=== PATIENT | female | born 1970 | race Caucasian/White ===

== ENCOUNTER 2018-01-04 19:05 | Emergency (ER) | payer OTHER, BC ==
[~2018-01-04] VITALS: Ht 157.5 cm; Wt 63.5 kg
[~2018-01-04 19:05] MED LIST: ALLEGRA; AMOCLA875 PO; AZIT250 PO; CARI350 PO; CYCL10 PO; FEXPSEER; FEXPSEER PO; FLUT.05NI; HYDACE5 PO; HYDACE5325 PO; NAPR500 PO; PROM25 PO; Percocet 5-3251 EACH PO; SUDAFED; Valium5 MG PO; ZYRTEC; [UNRECOGNIZED DRUG - OTHER]
[2018-01-04] MEDS ORDERED: Monodox100 MG PO (20:07)
[2018-01-04] MEDS ORDERED: BENADRYL25 MG PO (20:07)
== END 2018-01-04 20:26 | disposition home or self-care (01) ==
LOC: ER 19:05
DX: L03.114 Cellulitis of left upper limb (principal)
CPT/HCPCS: 99282; Q0163

== ENCOUNTER → 2018-05-26 | Outpatient (CLI) | payer OTHER, BC ==
[~2018-05-26] MED LIST changes: +BENADRYL25 MG PO; +Monodox100 MG PO
== END | disposition home or self-care (01) ==
LOC: LAB 15:15 → LAB SHORT 15:15
PROVIDERS: Nurse Practitioner
DX: Z01.411 Encounter for gynecological examination (general) (routine) with abnormal findings (principal); R30.0 Dysuria
CPT/HCPCS: 87086; G0145

== ENCOUNTER → 2020-08-21 | Outpatient (CLI) | payer OTHER, BC | END | disposition home or self-care (01) | LOC: LAB EV 09:11 → LAB SHORT 09:11 | PROVIDERS: Nurse Practitioner | DX: Z01.419 Encounter for gynecological examination (general) (routine) without abnormal findings (principal); R35.0 Frequency of micturition | CPT/HCPCS: 87086; G0145 ==

== ENCOUNTER 2022-03-07 18:27 | Emergency (ER) | payer OTHER, BC ==
[~2022-03-07] VITALS: Ht 157.5 cm; Wt 65.8 kg
[2022-03-07] MEDS ORDERED: GABA100 PO (21:21)
[2022-03-07] MEDS ORDERED: EUTHYROX50 MCG PO (21:21)
== END 2022-03-07 22:31 | disposition home or self-care (01) ==
LOC: ER 18:27
DX: R07.89 Other chest pain (principal); M25.512 Pain in left shoulder; Z79.899 Other long term (current) drug therapy
CPT/HCPCS: 71045; 73030; A9270

== ENCOUNTER → 2022-07-16 | Outpatient (CLI) | payer OTHER, BC ==
[~2022-07-16] MED LIST changes: +EUTHYROX50 MCG PO; +GABA100 PO
[2022-07-26 14:09] LABS: HPV 16 Negative (Negative); HPV 18 Negative (Negative); HPV OTHER HR TYPES Negative (Negative)
== END ==
LOC: LAB SHORT 11:15 → LAB 11:15
PROVIDERS: Physician Assistant
DX: Z01.419 Encounter for gynecological examination (general) (routine) without abnormal findings (principal)
CPT/HCPCS: 87624; 88175

== ENCOUNTER → 2024-07-12 | Outpatient (CLI) | payer OTHER, BC ==
[~2024-07-12] MED LIST changes: -EUTHYROX50 MCG PO; -GABA100 PO; +GABA300 PO; +LEVSOD25 PO; +PSEU120ER PO
== END ==
LOC: LAB SHORT 15:41 → LAB 15:41
DX: N39.0 Urinary tract infection, site not specified (principal)
CPT/HCPCS: 87077; 87086; 87186

== ENCOUNTER → 2025-01-11 | Outpatient (CLI) | payer OTHER, BC ==
[2025-01-11 12:58] LABS: Bacterial Vaginosis PCR Negative (NEGATIVE); Candida Group, PCR NOT DETECTED (NOT DETECT); Candida glabrata-krusei, PCR NOT DETECTED (NOT DETECT)
== END ==
LOC: LAB SHORT 09:40 → LAB 09:40
PROVIDERS: Obstetrics & Gynecology
DX: Z11.3 Encounter for screening for infections with a predominantly sexual mode of transmission (principal)
CPT/HCPCS: 81515